=== PATIENT | male | born 1940 | race Caucasian/White ===

== ENCOUNTER 2024-10-13 16:23 | Inpatient (IN) | payer MEDICARE, OTHER ==
[2024-10-13 17:11] LABS: #Basophils 0.03 10x3/uL (0.0-0.2); %Basophils 0.5 % (0.0-1.0); %Eosinophils 9.1 % (0.0-10.0); %Monocytes 8.1 % (0.0-10.0); Hematocrit 31.4 % (42.0-52.0); Hemoglobin 10.7 g/dL (14.0-18.0); Mean Corpuscular HGB CONC 34.1 g/dL (32.0-36.0); Mean Corpuscular Hemoglobin 29.6 pg (27.0-31.0); Mean Corpuscular Volume 86.7 fL (78.0-98.0); Mean Platelet Volume 9.1 fL (7.4-10.4); Platelet Count 268 10x3/uL (130-400); RBC Distribution Width 13.1 % (11.5-14.5); Red Blood Cell (RBC) Count 3.62 mill/uL (4.70-6.10)
[2024-10-13 17:25] LABS: Acetaminophen Less than 10 mcg/mL (Less than 10); Alcohol Less than 10.0 mg/dL (Less than 10); Salicylate Less than 8.0 mg/dL (Less than 8.0)
[2024-10-13 17:26] LABS: ALT (SGPT) 22 U/L (8-55); AST (SGOT) 21 U/L (5-34); Albumin 3.1 g/dL (3.4-4.8); Alkaline Phosphatase 79 U/L (40-110); Anion Gap 12 mmol/L (10-20); BUN (Urea Nitrogen) 29 mg/dL (8.4-25.7); Bilirubin, Total 0.4 mg/dL (0.2-1.2); Calc. Creatinine Clearance 0 mL/min (70-130); Calcium 8.7 mg/dL (7.8-10.44); Carbon Dioxide 27 mmol/L (23-31); Chloride 102 mmol/L (98-107); Estimated GFR 84; Globulin 3.1 g/dL (2.4-3.5); Glucose 142 mg/dL (83-110); Potassium 4.6 mmol/L (3.5-5.1); Protein, Total 6.2 g/dL (5.8-8.1); Sodium 136 mmol/L (136-145)
[2024-10-13 17:51] LABS: Actual Bicarbonate (HCO3a) 26.3 mEq/L (22-28); Analyzer IN Cardio ER; Base Excess (BEa) 1.2 mEq/L (-2.0 to +3.0); CO2 Tension 43.5 mmHg (35.0-45.0); Calcium, Ionized (arterial) 1.17 mmol/L (1.12-1.30); Carboxyhemoglobin (COHb) 0.6 gm% (0.0-3.0); Hematocrit-ABG 33 % (42.0-52.0); Hemoglobin (Hb) 11.2 g/dL (14.0-18.0); O2 Tension (PaO2), arterial 93.8 mmHg (> 60.0); Potassium - ABG Lab 4.35 mmol/L (3.70-5.30); pH, Arterial 7.399 (7.35-7.45)
[2024-10-13 17:53] LABS: ALV-art Gradient 51.465 mmHg (0-20); Puncture Site Right Radial artery
[2024-10-13] MEDS ORDERED: Acetaminophen 325 MG TAB PO PRN (20:40)
[2024-10-13] MEDS ORDERED: Ondansetron PF 4 MG/2 ML Vial IVP PRN (20:40)
[2024-10-13] MEDS ORDERED: Dextrose 50% Abboject 50 ML SYRINGE SLOW IVP PRN (20:42)
[2024-10-13] MEDS ORDERED: Insulin Lispro 100 UNIT/ML 10 ML VIAL SC PRN ×2 (20:42)
[2024-10-13] MEDS ORDERED: Dextrose 5% in Water 1,000 ML IV PRN (20:42)
[2024-10-13] MEDS ORDERED: Glucagon 1 MG/ML KIT IM PRN (20:42)
[2024-10-13] MEDS ORDERED: Albuterol 2.5 MG (3 mL) NEB NEB PRN (20:57)
[2024-10-13 21:00] LABS: Analyzer IN Cardio ER; Base Excess (BEa) 3.4 mEq/L (-2.0 to +3.0); CO2 Tension 48.4 mmHg (35.0-45.0); Calcium, Ionized (arterial) 1.17 mmol/L (1.12-1.30); Carboxyhemoglobin (COHb) 0.1 gm% (0.0-3.0); Hematocrit-ABG 35 % (42.0-52.0); O2 Tension (PaO2), arterial 82.5 mmHg (> 60.0); Potassium - ABG Lab 4.53 mmol/L (3.70-5.30); pH, Arterial 7.395 (7.35-7.45)
[2024-10-13 21:01] LABS: Puncture Site RR
[2024-10-13 22:04] LABS: Bacteria/HPF None Seen HPF (None Seen); Bilirubin Negative (Negative); Blood, Urine Negative (Negative); CAUTI Indications for Culture Dysuria,urgency,freq; Clarity Clear (Clear); Glucose, Urine (Dipstick) Normal (Negative); Ketone, Urine Negative (Negative); Leukocyte Negative Leu/uL (Negative); Nitrite Negative (Negative); Protein, Urine (Dipstick) Negative (Neg-Trace); RBC/HPF 0-3 HPF (0-3); Specific Gravity, Urine 1.011 (1.002-1.036); Squamous Epithelial None Seen HPF (0-3); Urine Culture Reflex No No; Urobilinogen Normal mg/dL (Less than 2); WBC/HPF 0-3 HPF (0-3); pH, Urine 6.5 (5.0-9.0)
[2024-10-13] MEDS ORDERED: Naloxone HCl 0.4 mg/ml Vial ONE (22:04)
[2024-10-13 22:11] LABS: Amphetamine Not Detected (NotDetected); Barbiturates Screen Not Detected (NotDetected); Benzodiazepine Screen Not Detected (NotDetected); Cocaine Metabolite Screen Not Detected (NotDetected); Methadone Not Detected (NotDetected); Methamphetamine Not Detected (NotDetected); Opiate Screen Not Detected (NotDetected); Oxycodone Screen Not Detected (NotDetected); Phencyclidine (PCP) Not Detected (NotDetected); THC/Cannabinoid Screen Not Detected (NotDetected); Tricyclic Screen Not Detected (NotDetected)
[2024-10-13 23:25] VITALS: BMI 21.5
[2024-10-14] MEDS: Ketorolac Tromethamine 30 MG (1 mL) VIAL IVP PRN (00:53)
[2024-10-14 05:09] LABS: #Basophils 0.03 10x3/uL (0.0-0.2); %Basophils 0.5 % (0.0-1.0); %Eosinophils 6.5 % (0.0-10.0); %Lymphocytes 13.1 % (21.0-51.0); %Monocytes 6.9 % (0.0-10.0); %Neutrophils 72.6 % (42.0-75.0); Hematocrit 32.9 % (42.0-52.0); Hemoglobin 10.9 g/dL (14.0-18.0); Mean Corpuscular HGB CONC 33.1 g/dL (32.0-36.0); Mean Corpuscular Hemoglobin 28.8 pg (27.0-31.0); Mean Platelet Volume 8.9 fL (7.4-10.4); Platelet Count 250 10x3/uL (130-400); RBC Distribution Width 13.1 % (11.5-14.5); Red Blood Cell (RBC) Count 3.78 mill/uL (4.70-6.10)
[2024-10-14 05:49] LABS: Anion Gap 13 mmol/L (10-20); BUN (Urea Nitrogen) 25 mg/dL (8.4-25.7); Calc. Creatinine Clearance 73 mL/min (70-130); Calcium 8.7 mg/dL (7.8-10.44); Carbon Dioxide 27 mmol/L (23-31); Chloride 104 mmol/L (98-107); Estimated GFR 88; Glucose 99 mg/dL (83-110); Potassium 4.7 mmol/L (3.5-5.1); Sodium 139 mmol/L (136-145)
[2024-10-14] MEDS ORDERED: Bisacodyl 10 MG SUPP PR PRN (07:13)
[2024-10-14] MEDS ORDERED: Calcium Carbonate 500 MG ChewTAB PO PRN (07:13)
[2024-10-14] MEDS: Enoxaparin 40 MG (0.4 mL) SYRINGE SC SCH (10:58)
[2024-10-14] MEDS: Polyethylene Glycol 3350 17 GM Packet PO SCH (10:59)
[2024-10-14] MEDS: Mometasone 100 MCG/Formoterol 5 MCG 120 PUFF INHALER INH SCH (19:19)
[2024-10-15] MEDS: Levothyroxine Sodium 100 MCG TAB PO SCH (05:24)
[2024-10-15 06:11] LABS: #Basophils 0.03 10x3/uL (0.0-0.2); %Basophils 0.6 % (0.0-1.0); %Eosinophils 6.5 % (0.0-10.0); %Lymphocytes 15.5 % (21.0-51.0); %Monocytes 7.5 % (0.0-10.0); %Neutrophils 69.5 % (42.0-75.0); Hematocrit 31.9 % (42.0-52.0); Hemoglobin 10.5 g/dL (14.0-18.0); Mean Corpuscular HGB CONC 32.9 g/dL (32.0-36.0); Mean Corpuscular Hemoglobin 28.5 pg (27.0-31.0); Mean Corpuscular Volume 86.7 fL (78.0-98.0); Mean Platelet Volume 9.1 fL (7.4-10.4); Platelet Count 290 10x3/uL (130-400); RBC Distribution Width 13.1 % (11.5-14.5); Red Blood Cell (RBC) Count 3.68 mill/uL (4.70-6.10)
[2024-10-15 06:29] LABS: Anion Gap 9 mmol/L (10-20); BUN (Urea Nitrogen) 28 mg/dL (8.4-25.7); Calc. Creatinine Clearance 71 mL/min (70-130); Calcium 8.8 mg/dL (7.8-10.44); Carbon Dioxide 27 mmol/L (23-31); Chloride 104 mmol/L (98-107); Estimated GFR 87; Glucose 125 mg/dL (83-110); Potassium 4.4 mmol/L (3.5-5.1); Sodium 136 mmol/L (136-145)
[2024-10-15 08:58] VITALS: TEMP 98.4
[2024-10-15 15:43] VITALS: BP 135/73
== END 2024-10-15 17:43 | DRG 91 ==
LOC: ERS 16:23 → IMCU/EMU 21:27 → T4-A 10-14 15:37
PROVIDERS: ADMIT Internal Medicine; ATTEND Hospitalist
PROC: XX20X89 Monitoring of Brain Electrical Activity, Computer-aided Detection and Notification, New Technology Group 9 (ICD-10-PCS; principal; 2024-10-13)
DX: G92.8 Other toxic encephalopathy (principal); S72.141A Displaced intertrochanteric fracture of right femur, initial encounter for closed fracture; G20.A1 Parkinson's disease without dyskinesia, without mention of fluctuations; G47.33 Obstructive sleep apnea (adult) (pediatric); E11.9 Type 2 diabetes mellitus without complications; J45.909 Unspecified asthma, uncomplicated; T42.4X5A Adverse effect of benzodiazepines, initial encounter; E03.9 Hypothyroidism, unspecified; D64.9 Anemia, unspecified; Z99.89 Dependence on other enabling machines and devices; Z79.4 Long term (current) use of insulin; Z95.0 Presence of cardiac pacemaker; W19.XXXA Unspecified fall, initial encounter; Y93.89 Activity, other specified; Y92.89 Other specified places as the place of occurrence of the external cause
CPT/HCPCS: 36415; 36416; 36600; 70450; 80048; 80053; 80306; 80307; 81001; 82805; 83605; 84443; 85025; 87086; 93005; 95705; 96374; J1650; J1885; J2310